=== PATIENT | male | born 1980 | race Asian ===

== ENCOUNTER 2023-06-23 07:58 | Outpatient (CLI) | payer BC ==
[2023-06-23 08:19] LABS: BASOPHILS # (AUTO) 0.1 K/UL (0.0-0.2); EOSINOPHILS # (AUTO) 0.1 K/uL (0.0-0.7); EOSINOPHILS % (AUTO) 1.6 % (0.0-7.0); HEMATOCRIT 41.7 % (36.7-47.1); HEMOGLOBIN 14.2 g/dL (12.5-16.3); LYMPHOCYTES # (AUTO) 3.2 K/uL (0.8-4.8); LYMPHOCYTES % (AUTO) 48.6 % (20.5-51.5); MEAN CORPUSCULAR HEMOGLOBIN 28.5 uug (23.8-33.4); MEAN CORPUSCULAR HGB CONC 34 g/dL (32.5-36.3); MEAN CORPUSCULAR VOLUME 83.6 fL (73.0-96.2); MONOCYTES # (AUTO) 0.5 K/uL (0.1-1.30); MONOCYTES % (AUTO) 7.4 % (0.0-11.0); NEUTROPHILS # (AUTO) 2.8 K/uL (1.8-8.9); NEUTROPHILS % (AUTO) 41.4 % (38.5-71.5); PLATELET COUNT (AUTO) 273 K/uL (152-348); RED BLOOD CELL COUNT(AUTO) 4.99 MIL/uL (4.06-5.63); RED CELL DISTRIBUTION WIDTH 13.3 % (12.1-16.2); WHITE BLOOD COUNT (AUTO) 6.7 K/uL (3.6-10.2)
[2023-06-23 08:29] LABS: DIFFERENTIAL COMMENT 1
[2023-06-23 08:34] LABS: BILIRUBIN,DIRECT 0.1 mg/dL (0.0-0.2); BILIRUBIN,TOTAL 0.2 mg/dL (0.2-1.0); CALCIUM 9.2 mg/dL (8.5-10.1); CREATININE 1.1 mg/dL (0.6-1.3); POTASSIUM 3.8 mmol/L (3.5-5.1); TOTAL PROTEIN, SERUM 8.4 g/dL (6.4-8.2); URIC ACID 7.3 mg/dL (3.5-7.2)
[2023-06-23 08:43] LABS: C-REACTIVE PROTEIN 0.75 mg/dL (0.00-0.30)
[2023-06-23 08:45] LABS: ERYTHROCYTE SEDIMENTATION RATE 38 MM/HR (0-15)
== END 2023-06-23 23:59 | disposition home or self-care (01) ==
LOC: LAB 07:58
PROVIDERS: ATTEND Nurse Practitioner Primary Care
DX: M10.9 Gout, unspecified (principal); M11.20 Other chondrocalcinosis, unspecified site
CPT/HCPCS: 36415; 84153; 84550; 85025; 85651; 86140

== ENCOUNTER 2024-05-28 03:03 | Emergency (ER) | payer BC, OTHER ==
[~2024-05-28] VITALS: Ht 170.2 cm; Wt 81.6 kg
[2024-05-28] MEDS ORDERED: INDOMETHACIN 25 MG CAPSULE ONE (03:14)
[2024-05-28] MEDS: INDOMETHACIN 25 MG CAPSULE PO ONE (03:18)
[2024-05-28] MEDS ORDERED: INDO50CA92 PO (03:20)
[2024-05-28] MEDS ORDERED: ALLO300T2 PO (03:20)
[2024-05-28 03:23] VITALS: BP 135/65; TEMP 98.2; O2SAT 98
[2024-05-28] MEDS ORDERED: HYDR-4209 PO (05:03)
== END 2024-05-28 03:23 | disposition home or self-care (01) ==
LOC: ER 03:03
DX: M10.9 Gout, unspecified (principal); F17.210 Nicotine dependence, cigarettes, uncomplicated; F17.290 Nicotine dependence, other tobacco product, uncomplicated
CPT/HCPCS: 36415; 84550; A4606; A4663

== ENCOUNTER 2024-11-25 07:29 | Emergency (ER) | payer BC, OTHER ==
[~2024-11-25] VITALS: Ht 170.2 cm; Wt 74.8 kg
[~2024-11-25 07:29] MED LIST: ALLO300T2 PO; HYDR-4209 PO; INDO50CA92 PO
[2024-11-25 07:32] VITALS: BP 129/96
[2024-11-25] MEDS: LIDOCAINE HCL 1% 20 ML VIAL TP ONE (08:23)
[2024-11-25] MEDS ORDERED: SULFAMETH/TRIMETH 800/160 MG TABLET ONE (08:32)
[2024-11-25] MEDS ORDERED: NEOMY/BACITRA/POLYMYXIN B OINT UD PACKET TP ONE (08:34)
[2024-11-25] MEDS ORDERED: HYDR-4209 PO (08:36)
[2024-11-25] MEDS ORDERED: SULF1TAB48 PO (08:39)
[2024-11-25] MEDS: NEOMY/BACITRA/POLYMYXIN B OINT UD PACKET TP ONE (08:42)
[2024-11-25] MEDS: SULFAMETH/TRIMETH 800/160 MG TABLET PO ONE (08:42)
[2024-11-25 08:55] VITALS: BP 125/87; O2SAT 98
== END 2024-11-25 08:56 | disposition home or self-care (01) ==
LOC: ER 07:29
DX: L02.31 Cutaneous abscess of buttock (principal); F17.210 Nicotine dependence, cigarettes, uncomplicated; F17.290 Nicotine dependence, other tobacco product, uncomplicated; M10.00 Idiopathic gout, unspecified site; Z79.899 Other long term (current) drug therapy
CPT/HCPCS: A4606; A4663